=== PATIENT | female | born 1950 | race Caucasian/White ===

== ENCOUNTER → 2024-09-19 16:11 | Outpatient (REF) | payer MEDICARE, OTHER, SELFPAY | LOC: WDC 16:11 | PROVIDERS: ATTENDING PHYSICIAN Obstetrics & Gynecology; FAMILY PHYSICIAN Family Medicine | DX: Z12.31 Encounter for screening mammogram for malignant neoplasm of breast (principal) | CPT/HCPCS: 77063; 77067 ==

== ENCOUNTER 2024-11-14 06:13 | Day surgery (SDC) | payer MEDICARE, OTHER, SELFPAY | END 2024-11-14 13:19 | disposition home or self-care (01) | LOC: GI 06:13 | PROVIDERS: ATTENDING PHYSICIAN Internal Medicine | DX: Z12.11 Encounter for screening for malignant neoplasm of colon (principal); Z86.0100 Personal history of colon polyps, unspecified | CPT/HCPCS: G0105 ==

== ENCOUNTER → 2025-03-03 07:42 | Outpatient (REF) | payer MEDICARE, OTHER, SELFPAY ==
[2025-03-03 08:40] LABS: % Basophils 0.7 % (0-2); % Eosinophils 2.5 % (0-6); % Immature Granulocytes 0.4 % (0-0.5); % Lymphocytes 47.1 % (20.5-51.1); % Monocytes 10.1 % (1.7-9.3); % Neutrophils 39.2 % (42.2-75.2); Absolute Basophils 0.1 10^3/uL (0-0.2); Absolute Eosinophils 0.2 10^3/uL (0-0.7); Absolute Monocytes 0.9 10^3/uL (0.1-0.6); Absolute Neutrophils 3.4 10^3/uL (1.4-6.5); Hematocrit 40.8 % (37.0-47.0); Hemoglobin 13.6 g/dL (12.0-16.0); Mean Corp Hgb Conc. 33.3 g/dL (33.0-37.0); Mean Corpuscular Hgb 30.4 pg (27.0-31.0); Mean Corpuscular Volume 91.3 fL (81.0-99.0); Mean Platelet Volume 10.8 fL (7.4-10.4); Nucleated Red Blood Cells % 0 %; Platelet Count 309 10^3/uL (130-400); Red Blood Cell Count 4.47 10^6/uL (4.20-5.40); Red Cell Dist. Width 15.1 % (11.5-14.5); White Blood Cell Count 8.5 10^3/uL (4.8-10.8)
[2025-03-03 09:14] LABS: ALT (SGPT) 18 U/L (0-35); AST (SGOT) 21 U/L (14-36); Alkaline Phosphatase 71 U/L (38-126); Blood Urea Nitrogen 20 mg/dl (7-17); Calcium 9.7 mg/dl (8.4-10.2); Carbon Dioxide 27 mmol/L (22-30); Chloride 109 mmol/L (98-107); Glucose 112 mg/dl (70-99); HDL Cholesterol 53 mg/dl; LDL Cholesterol, Calculated 106 mg/dl; Potassium 4.5 mmol/L (3.5-5.1); Sodium 142 mmol/L (135-145); Total Bilirubin 0.7 mg/dl (0.2-1.3); Total Cholesterol 178 mg/dl (50-199); Total Protein 6.8 g/dl (6.3-8.2); Triglyceride 97 mg/dl (10-149); Very Low Density Lipoprotein 19 mg/dl (0-30); eGFR > 60.00
[2025-03-03 10:34] LABS: Glycohemoglobin (HgbA1c) 5.7 % (4.0-5.6)
== END ==
LOC: REG 07:42
PROVIDERS: ATTENDING PHYSICIAN Family Medicine
DX: E78.00 Pure hypercholesterolemia, unspecified (principal); I10 Essential (primary) hypertension; R73.03 Prediabetes; Z00.00 Encounter for general adult medical examination without abnormal findings
CPT/HCPCS: 36415; 80053; 80061; 83036; 84443; 85025

== ENCOUNTER 2025-07-07 11:40 | Day surgery (SDC) | payer MEDICARE, OTHER, SELFPAY ==
--- NOTE | 2025-06-18 13:37 | CM ---
Demographics: confirmed
Living situation: independent with family
Support Person Post Operatively:
History of
VN: unsure
SNF: [facility] (patient had a bad experience)
Outpatient: Outpatient PT, [facility]
Has patient purchased required equipment: walker
PCP: Elysia
Pharmacy: [facility]
Post Operative Discharge Plan: Home with family and outpatient PT.
[2025-06-24 14:09] VITALS: BMI 38.3
[2025-06-24 14:40] LABS: Hematocrit 41.5 % (37.0-47.0); Hemoglobin 13.7 g/dL (12.0-16.0); Mean Corp Hgb Conc. 33.0 g/dL (33.0-37.0); Mean Corpuscular Volume 92.0 fL (81.0-99.0); Platelet Count 294 10^3/uL (130-400); Red Cell Dist. Width 15.4 % (11.5-14.5)
[2025-06-24 15:40] LABS: ALT (SGPT) 20 U/L (0-35); AST (SGOT) 22 U/L (14-36); Albumin 4.4 g/dl (3.5-5.0); Alkaline Phosphatase 76 U/L (38-126); Blood Urea Nitrogen 18 mg/dl (7-17); Calcium 9.6 mg/dl (8.4-10.2); Carbon Dioxide 24 mmol/L (22-30); Chloride 106 mmol/L (98-107); Estimated Creatinine Clearance 75 ml/min; Glucose 96 mg/dl (70-99); Potassium 4.9 mmol/L (3.5-5.1); Sodium 139 mmol/L (135-145); Total Protein 7.3 g/dl (6.3-8.2); eGFR > 60.00
[2025-06-24 17:14] VITALS: BMI 38.3
[2025-06-25 08:40] LABS: Glycohemoglobin (HgbA1c) 5.8 % (4.0-5.6)
[2025-07-07] VITALS (19 sets, daily range): BP systolic 101–129; BP diastolic 44–94; BMI 38.3
[2025-07-07] MEDS: BACTROBAN NASAL 1 GRAM NASAL (12:12)
[2025-07-07] MEDS: NORMOSOL-R/PLASMALYTE-A 1000 IV ×2 (12:13→18:04)
[2025-07-07] MEDS: TYLENOL 650 MG PO ×3 (12:13→21:27)
[2025-07-07] MEDS: CELEBREX 200 MG PO (12:13)
--- NOTE | 2025-07-07 13:07 | W.PN.UPDATE ---
Update Note
Progress Note Update
L knee OA s/p L TKA w/ Dr Sharp 07/07/25
- s/p R TKA, 12/2022, by Dr Sharp; L ANGELO, 2010, and R ANGELO 2008
DVT prophylaxis - ASA, b/l venous foot pumps
HTN - + parameters - monitor BP
Tachycardia - monitor on tele
- Continue BB
Lumbar radiculopathy - begin Gabapentin HS
Cutaneous lupus and h/o cellulitis - would benefit from Cefadroxil upon d/c
HLD
Prediabetes, A1c 5.8
Obesity, BMI 38.3
[2025-07-07] MEDS: ROXICODONE 5 MG PO (17:53)
[2025-07-07] MEDS: NEURONTIN 300 MG PO (21:27)
[2025-07-07] MEDS: DECADRON 4 MG PO (21:27)
[2025-07-07] MEDS: BACTROBAN 2% OINTMENT 1 APPLIC NASAL (21:27)
[2025-07-07] MEDS: SENOKOT 17.2 MG PO (21:27)
[2025-07-07] MEDS: VITAMIN D3 (cholecalciferol) 50 MCG PO (21:27)
[2025-07-07] MEDS: ASPIRIN 325 MG PO (21:27)
[2025-07-07] MEDS: ANCEF 5 IV (21:28)
[2025-07-07] MEDS: COLACE 100 MG PO (21:28)
[2025-07-07] MEDS: PEPCID PO (21:28)
[2025-07-07] MEDS: VITAMIN C 1000 MG PO (21:28)
[2025-07-07] MEDS: FLOMAX 0.4 MG PO (21:28)
[2025-07-08] VITALS (8 sets, daily range): BP systolic 102–148; BP diastolic 50–66; PULSE 80–88; O2SAT 93
[2025-07-08] MEDS: TYLENOL PO (01:06)
[2025-07-08] MEDS: ROXICODONE 5 MG PO ×3 (01:06→21:19)
[2025-07-08] MEDS: ANCEF 5 IV (04:53)
[2025-07-08] MEDS: TYLENOL 650 MG PO ×5 (04:53→19:30)
[2025-07-08] MEDS: ASPIRIN 325 MG PO (08:42)
[2025-07-08] MEDS: CELEBREX 200 MG PO (08:42)
[2025-07-08] MEDS: VITAMIN C 1000 MG PO (08:42)
[2025-07-08] MEDS: DECADRON 4 MG PO ×2 (08:42→19:30)
[2025-07-08] MEDS: TOPROL XL 25 MG PO (08:42)
[2025-07-08] MEDS: COLACE 100 MG PO ×2 (08:43→19:30)
[2025-07-08] MEDS: VITAMIN D3 (cholecalciferol) 50 MCG PO (08:43)
[2025-07-08] MEDS: BACTROBAN 2% OINTMENT 1 APPLIC NASAL ×2 (08:43→19:53)
[2025-07-08] MEDS: SENOKOT 17.2 MG PO ×2 (08:43→19:29)
[2025-07-08] MEDS: FLOMAX 0.4 MG PO ×2 (08:43→19:29)
--- NOTE | 2025-07-08 12:42 | W.PN.ORTHO ---
Today's Communication / Plan
-
Await urine culture results but begin empiric tx.
Continue to monitor voiding.
D/c when clinically stable.
Assessment
.
Distal Motor Intact: Yes
Dressing:
Small areas of old bleeding along incision.
Assessment:
L knee OA s/p L TKA w/ Dr Sharp 07/07/25
- s/p R TKA, 12/2022, by Dr Sharp; L ANGELO, 2010, and R ANGELO 2008
DVT prophylaxis - ASA, b/l venous foot pumps
Post-surgical urinary retention
- Reportedly occurred after previous total joint. Needed richmond cath upon d/c
- UA w/ + leukocyte esterase and urine WBCs. Culture pending. Based off UA, will treat w/ empiric abx (Monurol)
- Started on Flomax HS 3 nights pre-op. Did get 2 doses in last 24 hours. Will increase to BID dosing
- Bladder scan/straight cath as needed
HTN - + parameters - BPs stable overall
Tachycardia - rhythm stable on tele
- Continue BB
Lumbar radiculopathy - begin Gabapentin HS
Cutaneous lupus and h/o cellulitis - would benefit from Cefadroxil upon d/c
HLD
Prediabetes, A1c 5.8
Obesity, BMI 38.3
Plan
.
Surgery / Date: L TKA w/ Dr Sharp 07/07/25
DVT Prophylaxis: Aspirin
Activity:
Out of bed.
PT/OT
Discharge Plan: Home w/ Outpatient PT
Subjective
.
.:
Patient resting comfortably in her chair.
Post-surgical urinary retention based off PVRs. Reportedly happened after previous total joint too.
No other complaints voiced. Feels overall well.
Eager for potential d/c today.
Vital Signs and Labs
.
Vital Signs and Labs:
Lab Results
06/24/25 13:18
06/24/25 13:18
Temp Pulse Resp BP Pulse Ox
98.4 F 80 18 132/54 93
07/08/25 11:10 07/08/25 11:10 07/08/25 11:10 07/08/25 11:10 07/08/25 11:10
Non-invasive Hgb result: 12.6
Physical Exam
-
HEENT: No pallor, cyanosis, or jaundice. Throat clear.
NECK: Supple. No JVD.
RESPIRATORY: Lungs clear to auscultation.
CVS: S1, S2 normal. RRR.�
ABDOMEN: Soft, non-tender. No distension.
EXTREMITIES: Expected post-surgical L knee edema. Strength equal, no calf pain with palpation/dorsiflexion. Calves soft.
OB GYN PHYSICIAN ASSISTANT: AOx3. No focal deficits. crepe sole wire brusher grossly intact
[2025-07-08 13:16] LABS: Urine Character Clear (Clear)
[2025-07-08 14:35] LABS: Urine Squamous Cell 26-30 /LPF (Few)
[2025-07-08 14:38] LABS: Urine Red Blood Cell 0-2 /HPF (0-2)
[2025-07-08] MEDS: MONUROL 3 GM PO (16:08)
[2025-07-08] MEDS: FLORASTOR 250 MG PO (19:30)
[2025-07-08] MEDS: NEURONTIN 300 MG PO (21:19)
[2025-07-08] MEDS: PEPCID 20 MG PO (21:19)
[2025-07-09] MEDS: TYLENOL PO ×2 (00:12→04:40)
[2025-07-09 03:17] VITALS: BP 122/56
[2025-07-09 07:10] VITALS: BP 148/57
[2025-07-09] MEDS: SENOKOT PO (07:58)
[2025-07-09] MEDS: COLACE 100 MG PO (08:00)
[2025-07-09] MEDS: TYLENOL 650 MG PO ×2 (08:00→11:40)
[2025-07-09] MEDS: ASPIRIN 325 MG PO (08:00)
[2025-07-09] MEDS: CELEBREX 200 MG PO (08:00)
[2025-07-09] MEDS: FLOMAX 0.4 MG PO (08:00)
[2025-07-09] MEDS: TOPROL XL 25 MG PO (08:01)
[2025-07-09] MEDS: VITAMIN D3 (cholecalciferol) 50 MCG PO (08:01)
[2025-07-09] MEDS: DECADRON 4 MG PO (08:01)
[2025-07-09] MEDS: VITAMIN C 1000 MG PO (08:01)
[2025-07-09] MEDS: FLORASTOR 250 MG PO (08:01)
[2025-07-09 09:10] VITALS: BP 131/58; PULSE 75; O2SAT 98
--- NOTE | 2025-07-09 09:19 | W.PN.ORTHO ---
Today's Communication / Plan
-
Place richmond cath. Pt verbalizes understanding to call urology for voiding trial upon d/c.
D/c today since otherwise clinically stable.
Assessment
.
Distal Motor Intact: Yes
Dressing:
Small areas of old incisional bleeding noted - relatively unchanged since yesterday.
Assessment:
L knee OA s/p L TKA w/ Dr Sharp 07/07/25
- s/p R TKA, 12/2022, by Dr Sharp; L ANGELO, 2010, and R ANGELO 2008
DVT prophylaxis - ASA, b/l venous foot pumps
Post-surgical urinary retention
- Reportedly occurred after previous total joint. Needed richmond cath upon d/c
- UA w/ + leukocyte esterase, urine WBCs, few bacteria. Did preemptively tx w/ empiric Monurol yesterday for presumed UTI. Urine culture today w/o growth
- Started on Flomax HS 3 nights pre-op. Did increase to BID dosing POD 1. Continue upon d/c
- Spoke to Dr. Garcia this AM. Given last PVR >400, will richmond cath and d/c home. Pt aware to call his office to schedule cath removal/voiding trial w/ ANY of the urologists
- Of note, this could be a chronic issue for the patient. Given this happened multiple times and w/ her reported h/o of recurrent UTIs, may need to f/u w/ urology on more frequent basis
HTN - + parameters - BPs stable overall
Tachycardia - rhythm stable on tele
- Continue BB
Lumbar radiculopathy - begin Gabapentin HS
HLD
Cutaneous lupus and h/o cellulitis
Prediabetes, A1c 5.8
Obesity, BMI 38.3
Plan
.
Surgery / Date: L TKA w/ Dr Sharp 07/07/25
DVT Prophylaxis: Aspirin
Activity:
Out of bed.
PT/OT
Discharge Plan: Home w/ VN
Subjective
.
.:
Patient resting comfortably in her chair.
L knee pain well controlled w/ current pain meds.
Post-surgical urinary retention slowly improving - discussed w/ urology.
Eager for potential d/c today.
Vital Signs and Labs
.
Vital Signs and Labs:
Lab Results
06/24/25 13:18
06/24/25 13:18
Temp Pulse Resp BP Pulse Ox
97.6 F 80 18 148/57 95
07/09/25 07:10 07/09/25 08:01 07/09/25 07:10 07/09/25 08:01 07/09/25 07:10
Non-invasive Hgb result: 12.9
Physical Exam
-
HEENT: No pallor, cyanosis, or jaundice. Throat clear.
NECK: Supple. No JVD.
RESPIRATORY: Lungs clear to auscultation.
CVS: S1, S2 normal. RRR.�
ABDOMEN: Soft, non-tender. No distension. Obese.
EXTREMITIES: Strength equal, no calf pain with palpation/dorsiflexion. Calves soft.
DIGITAL COMMENTATOR: AOx3. No focal deficits. automotive repair technician grossly intact
--- NOTE | 2025-07-09 09:37 | W.DS.TRANS ---
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
-
Discharge Instructions:
Sleep Apnea Risk Intermediate
Discharge Diagnosis/Procedures L knee OA s/p L TKA w/ Dr Sharp 07/07/25
Diet Regular
Additional Diets Adequate hydration, minimize opioids, and wear
TEDs stockings to prevent low blood pressure/
dizziness.
Activity With Walker,As tolerated
Driving Restrictions Not until seen by your Dr
Bathing Restrictions OK to Shower
Other Services PT,VN
Wound Care Dressing to be removed 1 week post-surgery.
Chung to be removed at 2 week follow-up with
surgeon's office.
Instructions: How to care for a urinary catheter
Stand-Alone Forms: Total Hip/Knee Replacement D/C
Changes to Home Medications: Yes
Discharge Medications:
DC Medications w/original date entered in [facility]
glucosamine-chondroitin 250 mg-200 mg tablet (Osteo Bi-Flex) 2 tab PO DAILY Supplement 12/07/22
Held on 07/09/25. Instructions: Resume on 07/14/25.
metoprolol succinate 25 mg tablet,extended release 24 hr 25 mg PO DAILY Blood pressure 12/07/22
Boswellia abdulaziz extract 225 mg PO DAILY 06/23/25
Held on 07/09/25. Instructions: Resume on 07/14/25.
ascorbic acid (vitamin C) 1,000 mg tablet (Vitamin C) 1,000 mg PO DAILY 06/23/25
cholecalciferol (vitamin D3) 50 mcg (2,000 unit) tablet (Vitamin D3) 50 mcg PO DAILY 06/23/25
augustine (Zingiber officinalis) 75 mg PO DAILY 06/23/25
Held on 07/09/25. Instructions: Resume on 07/14/25.
mupirocin 2 % topical ointment 1 applic topical BID infection prevention #1 tube 06/23/25
rutin 500 mg tablet 250 mg PO DAILY 06/23/25
Held on 07/09/25. Instructions: Resume on 07/14/25.
turmeric 400 mg capsule 1,200 mg PO DAILY 06/23/25
Held on 07/09/25. Instructions: Resume on 07/14/25.
cefadroxil 500 mg capsule 500 mg PO BID infection prevention #14 caps 06/24/25
celecoxib 200 mg capsule 200 mg PO DAILY Anti-inflammatory #14 caps 06/24/25
dexamethasone 4 mg tablet 4 mg PO BID inflammation #6 tabs 06/24/25
famotidine 20 mg tablet 20 mg PO HS GI prophylaxis #30 tabs 06/24/25
gabapentin 300 mg capsule 300 mg PO HS sleep/pain #10 caps 06/24/25
ondansetron 4 mg disintegrating tablet 4 mg PO Q6H PRN n/v #20 tabs 06/24/25
oxycodone 5 mg tablet 5 mg PO Q6H PRN 1 tab moderate pain, 2 tabs severe pain #30 tabs 06/24/25
Saccharomyces boulardii 250 mg capsule (Florastor) 250 mg PO BID #14 caps 07/08/25
acetaminophen 500 mg tablet (Acetaminophen Extra Strength) 1,000 mg (2 x 500 mg) PO Q6H #60 tabs 07/08/25
aspirin 325 mg tablet 325 mg PO DAILY #30 tabs 07/08/25
docusate sodium 100 mg capsule 100 mg PO BID #30 caps 07/08/25
sennosides 8.6 mg tablet (Mattie-kelly) 17.2 mg (2 x 8.6 mg) PO BID PRN Constipation #30 tabs 07/09/25
tamsulosin 0.4 mg capsule 0.4 mg PO BID urinary retention #14 caps 07/09/25
Home Medication Changes
cefadroxil 500 mg capsule 500 mg PO BID infection prevention #14 caps 06/24/25
celecoxib 200 mg capsule 200 mg PO DAILY Anti-inflammatory #14 caps 06/24/25
dexamethasone 4 mg tablet 4 mg PO BID inflammation #6 tabs 06/24/25
famotidine 20 mg tablet 20 mg PO HS GI prophylaxis #30 tabs 06/24/25
gabapentin 300 mg capsule 300 mg PO HS sleep/pain #10 caps 06/24/25
ondansetron 4 mg disintegrating tablet 4 mg PO Q6H PRN n/v #20 tabs 06/24/25
oxycodone 5 mg tablet 5 mg PO Q6H PRN 1 tab moderate pain, 2 tabs severe pain #30 tabs 06/24/25
Saccharomyces boulardii 250 mg capsule (Florastor) 250 mg PO BID #14 caps 07/08/25
acetaminophen 500 mg tablet (Acetaminophen Extra Strength) 1,000 mg (2 x 500 mg) PO Q6H #60 tabs 07/08/25
aspirin 325 mg tablet 325 mg PO DAILY #30 tabs 07/08/25
docusate sodium 100 mg capsule 100 mg PO BID #30 caps 07/08/25
sennosides 8.6 mg tablet (Mattie-kelly) 17.2 mg (2 x 8.6 mg) PO BID PRN Constipation #30 tabs 07/09/25
tamsulosin 0.4 mg capsule 0.4 mg PO BID urinary retention #14 caps 07/09/25
Pending Results: No
[2025-07-09] MEDS: ROXICODONE 5 MG PO (10:01)
--- NOTE | 2025-07-09 10:05 | CM ---
Patient for discharge today. CM spoke with patient and offered choice of home care. Patient is agreeable to [facility]. Referral sent via [facility].
PLAN: Home with [facility]
--- NOTE | 2025-07-09 10:53 | VNURNOTE ---
Home Health Liaison met with patient at bedside to discuss [facility] nurse/therapy, visits, schedule and homebound status. Patient is agreeable and understands that visits at home will be 2-3 x per week to assess and teach medical and richmond
management. Requested RN show pt how to empty richmond. She will also show her switching to overnight richmond bag. Patient is aware that [facility] will contact them for start of care in 1-2 days after discharge from . Provided contact number for
[facility].
[facility] referral completed in [facility].
[2025-07-09 11:10] VITALS: BP 113/49
== END 2025-07-09 13:33 | disposition home health service (06) ==
LOC: SDS 11:40
PROVIDERS: Physician Assistant; ATTENDING PHYSICIAN Specialist; FAMILY PHYSICIAN Family Medicine; OTHER PHYSICIAN Physician Assistant Medical; REFERRING PHYSICIAN Internal Medicine Cardiovascular Disease
DX: M17.12 Unilateral primary osteoarthritis, left knee (principal); Z98.890 Other specified postprocedural states
CPT/HCPCS: 27447; 36415; 73560; 80053; 81003; 81015; 83036; 85027; 87070; 87086; 97110; 97116; 97162; 97166; 97535; C1713; C1776